=== PATIENT | male | born 1945 | race Caucasian/White ===

== ENCOUNTER 2018-07-09 17:35 | Observation (INO) | payer OTHER ==
[~2018-07-09] VITALS: Ht 182.9 cm; Wt 70.5 kg
[~2018-07-09 17:35] MED LIST: ALBU.083IS IH; ALBU90OI INH; ALBU90OI61 INH; AMLO5 PO; AMOX500 PO; AZIT250 PO; Augmentin 875-1 EACH PO; CARI350; EXFORGE PO; FLUSAL115; FLUSAL2505 IH; GABA600 PO; GUAI600T33 PO; HYDACE10B; HYDACE10B PO; HYDACE5 PO; HYDGUAL120 PO; IPRAIS NEB; K-Dur10 MEQ PO; LEVFLO500 PO; LISI5 PO; Lasix20 MG PO; META800 PO; METH10 PO; METPRE4DP PO; MONT10T PO; MORP15ER PO; NAPR500; NAPR500 PO; OXYACE7.5T PO; OXYC20ER; PRED10 PO; PRED20 PO; Prednisone20 MG PO; RXHYDACE PO; SERT25 PO; WATER PILL; Zithromax250 MG PO
[2018-07-09] MEDS ORDERED: MORP15ER PO (17:48)
[2018-07-09] MEDS ORDERED: LOSA25 PO (17:48)
[2018-07-09] MEDS ORDERED: GABA600 PO (17:49)
[2018-07-09 18:07] LABS: BASOPHILS ABSOLUTE AUTO 0.06 K/mm3 (0.00-0.23); BASOPHILS PERCENT AUTO 1 % (0-2); EOSINOPHILS ABSOLUTE AUTO 0.35 K/mm3 (0.00-0.68); EOSINOPHILS PERCENT AUTO 3 % (0-6); Hematocrit 43.9 % (37.0-53.0); Hemoglobin 14.5 g/dL (13.5-17.5); IMMATURE GRAN ABSOLUTE AUTO 0.03 K/mm3 (0.00-0.10); IMMATURE GRAN PERCENT AUTO 0 % (0-1); LYMPHOCYTES PERCENT AUTO 31 % (21-46); MONOCYTES ABSOLUTE AUTO 0.72 K/mm3 (0.16-1.47); MONOCYTES PERCENT AUTO 7 % (4-13); Mean Corpuscular HGB 31.5 pg (26.0-34.0); Mean Corpuscular Volume 95 fL (80-100); Mean Platelet Volume 10.3 fL (9.1-12.4); NEUTROPHILS ABSOLUTE AUTO 6.34 K/mm3 (1.96-9.15); NEUTROPHILS PERCENT AUTO 59 % (41-73); Platelet Count 235 K/mm3 (150-400); RDW Coefficient Variation 12.5 % (11.7-14.2); RDW Standard Deviation 43.6 fL (35.1-46.3)
[2018-07-09 18:38] LABS: Alanine Aminotransfer (ALT/SGP 14 U/L (12-78); Albumin, Blood 3.5 g/dL (3.4-5.0); Alk Phos 95 U/L (50-136); Anion Gap 6 mmol/L (6-16); Aspartate Aminotrans (AST/SGOT 11 U/L (12-37); Bilirubin, Total 0.4 mg/dL (0.1-1.0); Blood Urea Nitrogen 11 mg/dL (8-24); Bun/Creatinine Ratio 14.2 (12.0-20.0); CO2, Blood 25 mmol/L (21-32); Calcium, Blood 8.6 mg/dL (8.5-10.1); Chloride, Blood 107 mmol/L (98-108); Creatinine, Blood 0.77 mg/dL (0.60-1.20); Globulin, Blood 3.5 g/dL (2.2-4.0); Glomerular Filtration Rate >60 (60-); Glucose, Blood 83 mg/dL (70-99); Potassium, Blood 3.6 mmol/L (3.5-5.5); Sodium, Blood 138 mmol/L (136-145); Troponin I <0.015 ng/mL (0.000-0.040)
--- NOTE | 2018-07-09 20:30 | NUR ---
RECEIVED HAND OFF FROM CHRISTOFER YARBROUGH IN ER USING SBAR. TRANSPORTED TRO ROOM VIA STRETCHER. TRANSFERED TO BED WITH STANDBY STAFF ASSISTANCE, TOLERATED WELL. AAO X3, STANLEY, FOLLOWS ALL COMMANDS. ORIENTED TO ROOM, CALL SYSTEM, AND POC, VOICES UNDERSTANDING. LYING IN HIGH FOWLERS WITH EYES OPEN. DINNER TIME SNACKS PROVIDED, STATES THAT HE HAS NOT EATEN ALL DAY DUE TO THE CHEST PAIN THAT BROUGHT HIM IN TONIGHT. CONSUMED 2 HALF PIECES OF ROAST BEEF SADWICHS AND 2 PIECES OF CHEESE, WATER PROVIDED. TELEMETRY PLACED ON PT, SHOWS NSR WITH PAC'S AT 64BPM. RESPIRATIONS EVEN AND UNLABORED ON ROOM AIR. LUNG SOUNDS CLEAR BILATERALLY. ABDOMEN SOFT AND NONDISTENDED. BOWEL SOUNDS PRESENT IN ALL QUADS. CONTINENT OF BOWEL AND BLADDER, USES URINAL AT BEDSIDE. LEFT FA 20G SL PIV IS PATENT, FLUSHING WITH EASE. DENEIS FURTHER NEEDS AT THIS TIME. SAFETY MEASURES IN PLACE. WILL CONTINUE TO MONITOR.
--- NOTE | 2018-07-10 06:27 | NUR ---
LYING IN SUPINE POSITION WITH EYES CLOSED. RESPIRATIONS EVEN AND UNLABORED. NO CHANGES SINCE ADMISSION. DENIES FURTHER NEED AT THIS TIME. SAFETY MEASURES IN PLACE. WILL CONTINUE TO MONITOR.
--- NOTE | 2018-07-10 07:21 | NUR ---
recvd report from previous shift RN Kassandra, pt sleeping in room, bed in lowest position, bed rails up x 2, call light in reach
--- NOTE | 2018-07-10 12:15 | NUR ---
pt appears to be sleeping.
--- NOTE | 2018-07-10 15:56 | NUR ---
pt transferred to the heart center via wheelchair
--- NOTE | 2018-07-10 18:13 | NUR ---
shift summary: pt remained a/0 x 4, pleasant/cooperative, tolerated PO intake with no n/v. pt reports pain in back/legs controlled per mar. pt completed cardiac stress test this shift, findings indicate cardiac consult per hospitalist. consult line will be called. vss, no acute changes. pt sleeping x 3 nurse roundings following stress test.
[2018-07-11 04:50] LABS: BASOPHILS ABSOLUTE AUTO 0.05 K/mm3 (0.00-0.23); BASOPHILS PERCENT AUTO 1 % (0-2); EOSINOPHILS ABSOLUTE AUTO 0.47 K/mm3 (0.00-0.68); EOSINOPHILS PERCENT AUTO 5 % (0-6); Hematocrit 43.3 % (37.0-53.0); Hemoglobin 14.3 g/dL (13.5-17.5); IMMATURE GRAN ABSOLUTE AUTO 0.02 K/mm3 (0.00-0.10); IMMATURE GRAN PERCENT AUTO 0 % (0-1); LYMPHOCYTES ABSOLUTE AUTO 3.06 K/mm3 (0.84-5.20); LYMPHOCYTES PERCENT AUTO 34 % (21-46); MONOCYTES ABSOLUTE AUTO 0.75 K/mm3 (0.16-1.47); MONOCYTES PERCENT AUTO 8 % (4-13); Mean Corpuscular HGB 32.1 pg (26.0-34.0); Mean Corpuscular Volume 97 fL (80-100); Mean Platelet Volume 9.7 fL (9.1-12.4); NEUTROPHILS ABSOLUTE AUTO 4.69 K/mm3 (1.96-9.15); NEUTROPHILS PERCENT AUTO 52 % (41-73); Platelet Count 217 K/mm3 (150-400); RDW Coefficient Variation 12.5 % (11.7-14.2); RDW Standard Deviation 45.1 fL (35.1-46.3); Red Blood Cell Count 4.45 M/mm3 (4.30-5.90); White Blood Cell Count 9.04 K/mm3 (4.00-11.30)
[2018-07-11 05:03] LABS: International Normalized Ratio 0.99; Prothrombin Time Results 10.2 Sec (9.7-11.5)
[2018-07-11 05:14] LABS: Anion Gap 5 mmol/L (6-16); Blood Urea Nitrogen 19 mg/dL (8-24); Bun/Creatinine Ratio 26.6 (12.0-20.0); CHOL/HDL RATIO 2.7; CO2, Blood 26 mmol/L (21-32); Calcium, Blood 8.3 mg/dL (8.5-10.1); Chloride, Blood 109 mmol/L (98-108); Cholesterol 152 mg/dL (50-200); Creatinine, Blood 0.71 mg/dL (0.60-1.20); Glomerular Filtration Rate >60 (60-); Glucose, Blood 90 mg/dL (70-99); HDL Cholesterol 56 mg/dL (>39); LDL/HDL RATIO 1.5; Low Density Lipoprotein Chol 83 mg/dL (0-110); Potassium, Blood 3.9 mmol/L (3.5-5.5); Sodium, Blood 140 mmol/L (136-145); Triglycerides 65 mg/dL (30-160); Very Low Density Lipoprot Chol 13 mg/dL (6-32)
--- NOTE | 2018-07-11 10:30 | NUR ---
PT A&OX4, VSS, TELE S @ 60 OCC PVCS, INDEPENDENT IN ROOM, VOIDING WELL, LEFT FLOOR FOR ANGIOGRAM. REPORT CALLED TO LINNEA @ ICU.
--- NOTE | 2018-07-11 13:09 | NUR ---
Recieve patient from Hazmat Cdl Driver. Patient is alert and oriented. Splint on right wrist. Vital signs stable. Patient denies chest pain or pressure. Pulse ox on right finger. See flowsheet for details. present in room. Educated patient regarding keeping right wrist stable.
--- NOTE | 2018-07-11 15:13 | NUR ---
AGREE WITH EARLIER STUDENT NOTE FOR PT. PT RT SITE REMAINS STABLE. R FINGER SATS STABLE. PT CONT. TO DENIE PAIN OR DISTRESS, SETTING UP EATING. WILL BEGIN RT BAND DEFLATION [place].
--- NOTE | 2018-07-11 15:39 | NUR ---
TR BAND DEFLATED AND SITE IS STABLE FOR NOW. PT INSTRUCTED TO VISUALLY ASSIST WITH FOLLOW UP AND ARM BOARD REPLACED. WILL FOLLOW. PT HR CONT TO BE BELOW 60 AND TOPROL HELD BEFORE.
--- NOTE | 2018-07-11 16:49 | NUR ---
R TR BAND FULLY DEFLATED EARLIER AND NOW REMOVED WITH DSG PLACED. WHEN BAND REMOVED, SMALL THIN AREA ABOUT 1/2 DOLLAR SIZE NOTED THAT DID NOT FEEL LIKE HEMATOMA. ACTUAL SITE IS CLEAR AND INTACT W/O OOZING AT THIS AT TIME OF DSG CHANGE COMPLETION. PT REMAINS STABLE AND W/O ANY SIGNS OF DISTRESS.
--- NOTE | 2018-07-11 17:40 | NUR ---
PT CONT TO REST WELL W/O PAIN OR DISTRESS. R TR SITE INTACT WITH NEW DSG AND NO FURTHER BLEEDING AT SITE CURRENTLY WITH ARM BOARD ON. PT HAS BEEN VOIDING PER URINAL. IVF REMAINS AT 100ML FOR REMAINDER OF 500 BAG PER ORDER.
--- NOTE | 2018-07-11 20:00 | NUR ---
ASSUMED CARE OF PT AT 1900. REPORT RECEIVED AT BEDSIDE. PT PRESENTS IN BED. ALERT AND ORIENTED. PLEASANT AND COOPERATIVE WITH CARE AND ASSESSMENT. RADIAL ACCESS SITE WITH MINIMAL HEMATOMA NEAR ACCESS SITE. NO CHANGE PER OFFGOING RN. SHADOW DRAINAGE FROM OOZE ON CHG DRESSING. NO CHANGE NOTED WELL. WILL CONTINUE TO MONIOR. WILL REVIEW CHART AND PLAN OF CARE FOR THIS PT.
--- NOTE | 2018-07-11 20:00 | NUR ---
ASSUMED CARE OF PT. REPORT RECEIVED AT BEDSIDE. FISTULA PROCEDURAL REPAIR SITE EVALUATED AND ASSESSED WITH OFFGOING RN. SOME SWELLING AROUND FISTUAL SITE. GOOD THRILL NOTED AND GOOD DISTAL CMS CHECKS. NO INCREASE IN OOZING PER OFFGOING RN. WILL CONTINUE TO MONITOR SITE. WILL REVIEW CHART AND PLAN OF CARE FOR THIS PT.
[2018-07-11] MEDS ORDERED: BRIO INH (20:10)
[2018-07-11] MEDS ORDERED: INCRUSE ELLI62.5 MCG INH (20:11)
[2018-07-11] MEDS ORDERED: Aspirin EC81 MG PO (20:14)
[2018-07-11] MEDS ORDERED: CHOL10002 PO (20:14)
--- NOTE | 2018-07-12 01:29 | NUR ---
PT CONTINUES TO REST. VOICES NO COMPLAINTS OF CHEST PAIN OR PRESSURE. RADIAL ACCESS SITE REMAINS UNCHANGED. WILL CONTINUE TO MONITOR PT.
[2018-07-12 05:16] LABS: BASOPHILS ABSOLUTE AUTO 0.05 K/mm3 (0.00-0.23); BASOPHILS PERCENT AUTO 1 % (0-2); EOSINOPHILS ABSOLUTE AUTO 0.38 K/mm3 (0.00-0.68); EOSINOPHILS PERCENT AUTO 5 % (0-6); Hematocrit 40.2 % (37.0-53.0); Hemoglobin 13.3 g/dL (13.5-17.5); IMMATURE GRAN ABSOLUTE AUTO 0.02 K/mm3 (0.00-0.10); IMMATURE GRAN PERCENT AUTO 0 % (0-1); LYMPHOCYTES ABSOLUTE AUTO 3.16 K/mm3 (0.84-5.20); LYMPHOCYTES PERCENT AUTO 38 % (21-46); MONOCYTES ABSOLUTE AUTO 0.72 K/mm3 (0.16-1.47); MONOCYTES PERCENT AUTO 9 % (4-13); Mean Corpuscular HGB 32.4 pg (26.0-34.0); Mean Corpuscular HGB Conc 33.1 g/dL (31.5-36.5); Mean Corpuscular Volume 98 fL (80-100); Mean Platelet Volume 10.7 fL (9.1-12.4); NEUTROPHILS ABSOLUTE AUTO 4.04 K/mm3 (1.96-9.15); NEUTROPHILS PERCENT AUTO 48 % (41-73); Platelet Count 194 K/mm3 (150-400); RDW Coefficient Variation 12.5 % (11.7-14.2); RDW Standard Deviation 45.4 fL (35.1-46.3); White Blood Cell Count 8.37 K/mm3 (4.00-11.30)
[2018-07-12 06:06] LABS: Anion Gap 4 mmol/L (6-16); Blood Urea Nitrogen 21 mg/dL (8-24); Bun/Creatinine Ratio 29.7 (12.0-20.0); CO2, Blood 27 mmol/L (21-32); Calcium, Blood 7.9 mg/dL (8.5-10.1); Chloride, Blood 110 mmol/L (98-108); Creatinine, Blood 0.71 mg/dL (0.60-1.20); Glomerular Filtration Rate >60 (60-); Glucose, Blood 83 mg/dL (70-99); Potassium, Blood 3.7 mmol/L (3.5-5.5); Sodium, Blood 141 mmol/L (136-145)
--- NOTE | 2018-07-12 07:23 | NUR ---
DR DOW COMES IN TO SEE PT THIS AM. SHE INFORMS PT THAT HE WILL BE DISCHARGED TODAY AND IS TO FOLLOW UP WITH HER IN TWO WEEKS. RIGHT RADIAL PUNCTURE SITE REMAINS UNCHANGED. REPORT GIVEN TO CHRISTOFER MUÑOZ
--- NOTE | 2018-07-12 08:21 | NUR ---
0730: CARE ASSUMED, PT RESTING IN BED WATCHING TV, DENIES SOB, CHEST PAIN/ORESSURE, OR DISCOMFORT AT THIS TIME. VSS, SPO2 95% ON RA, HR 50'S - 60'S SINUS. LS COARSE IN LLL, OTHER LOBES CLEAR, PT JUST FINISHED NEB TREATMENT. PT ALERT AND ORIENTED, DENIES NEEDS OR C/O AT THIS TIME. DR. DOW BACK AT BEDSIDE TO DISCUSS MEDICATIONS WITH PT. 0800: PT SITTING UP IN BED EATING BREAKFAST, TOLERATING WELL. DR. RIBEIRO AT BEDSIDE.
[2018-07-12] MEDS ORDERED: BREO ELLIPTA 21 EACH INH (09:19)
[2018-07-12] MEDS ORDERED: AMLO5 PO (09:23)
[2018-07-12] MEDS ORDERED: ATOR40TA PO (09:24)
[2018-07-12] MEDS ORDERED: Isosorbide Mono30 MG PO (09:26)
--- NOTE | 2018-07-12 10:17 | NUR ---
1000: PT GOT UP TO BR, HAD A BM, THEN WENT BACK TO BED. SOB WITH EXERTION REMAINS, PT RECOVERS QUICKLY WITH REST, SPO2 MAINTAINS MID 90'S ON RA. 1015: IV DC'D WITH TIP INTACT, PRESSURE DRESSING APPLIED. DISCHARGE INSTRUCTIONS GIVEN TO PT, PT VERBALIZES UNDERSTANDING. RX'S SENT TO PHARMACY. PT AWAITING 'S ARRIVAL FOR RIDE HOME, DENIES NEEDS OR C/O AT THIS TIME. SPO2 96% ON RA, PT DENIES SOB.
--- NOTE | 2018-07-12 11:10 | NUR ---
1045: PT'S ARRIVED TO CUSTOMER PROJECT MANAGER PT, MONITORING DC'D AT THIS TIME, PT DENIES SOB. SPO2 96% ON RA. PT DC TO HOME AT THIS TIME WITH WITH DC INSTRUCTIONS, VERBALIZES UNDERSTANDING. PT ASSISTED TO CAR VIA WC BY STAFF MEMBER.
== END 2018-07-12 10:45 | disposition home or self-care (01) ==
LOC: ER 17:35 → SURS 17:36 → ICUE 07-11 12:30
PROVIDERS: Emergency Medicine; Internal Medicine Cardiovascular Disease; ADMIT Internal Medicine
DX: I20.0 Unstable angina (principal); R94.31 Abnormal electrocardiogram [ECG] [EKG]; R94.39 Abnormal result of other cardiovascular function study; J44.9 Chronic obstructive pulmonary disease, unspecified; I10 Essential (primary) hypertension; F11.90 Opioid use, unspecified, uncomplicated; E78.5 Hyperlipidemia, unspecified; M54.9 Dorsalgia, unspecified; G89.29 Other chronic pain; Z88.2 Allergy status to sulfonamides; Z88.8 Allergy status to other drugs, medicaments and biological substances; Z79.899 Other long term (current) drug therapy
CPT/HCPCS: 36415; 71046; 78452; 80048; 80053; 80061; 83690; 84484; 85025; 85610; 93005; 93010; 93017; 93454; 94640; 96360; 96361; 96372; 99152; 99153; 99285-25; A9500; C1769; C1894; G0378; J0706; J1644; J1650; J2250; J2785; J3010; J7030; J7040; Q9967

== ENCOUNTER 2019-08-28 19:13 | Emergency (ER) | payer OTHER ==
[~2019-08-28] VITALS: Ht 182.9 cm; Wt 67.1 kg
[~2019-08-28 19:13] MED LIST changes: +ATOR40TA PO; +Aspirin EC81 MG PO; +BREO ELLIPTA 21 EACH INH; +BRIO INH; +CHOL10002 PO; +INCRUSE ELLI62.5 MCG INH; +Isosorbide Mono30 MG PO; +LOSA25 PO
[2019-08-28 19:59] LABS: BASOPHILS ABSOLUTE AUTO 0.06 K/mm3 (0.00-0.23); BASOPHILS PERCENT AUTO 1 % (0-2); EOSINOPHILS ABSOLUTE AUTO 0.24 K/mm3 (0.00-0.68); EOSINOPHILS PERCENT AUTO 3 % (0-6); Hematocrit 45.4 % (37.0-53.0); Hemoglobin 14.9 g/dL (13.5-17.5); IMMATURE GRAN ABSOLUTE AUTO 0.02 K/mm3 (0.00-0.10); IMMATURE GRAN PERCENT AUTO 0 % (0-1); LYMPHOCYTES ABSOLUTE AUTO 3.18 K/mm3 (0.84-5.20); LYMPHOCYTES PERCENT AUTO 37 % (21-46); MONOCYTES ABSOLUTE AUTO 0.68 K/mm3 (0.16-1.47); MONOCYTES PERCENT AUTO 8 % (4-13); Mean Corpuscular HGB 32.4 pg (26.0-34.0); Mean Corpuscular HGB Conc 32.8 g/dL (31.5-36.5); Mean Corpuscular Volume 99 fL (80-100); Mean Platelet Volume 10.1 fL (9.1-12.4); NEUTROPHILS ABSOLUTE AUTO 4.52 K/mm3 (1.96-9.15); NEUTROPHILS PERCENT AUTO 52 % (41-73); Platelet Count 248 K/mm3 (150-400); RDW Coefficient Variation 12.5 % (11.7-14.2); RDW Standard Deviation 45.5 fL (35.1-46.3)
[2019-08-28 20:23] LABS: Alanine Aminotransfer (ALT/SGP 20 U/L (12-78); Albumin, Blood 3.3 g/dL (3.4-5.0); Albumin/Globulin Ratio 0.9 (0.8-1.8); Alk Phos 106 U/L (50-136); Anion Gap 2 mmol/L (6-16); Aspartate Aminotrans (AST/SGOT 15 U/L (12-37); Bilirubin, Total 0.3 mg/dL (0.1-1.0); Blood Urea Nitrogen 17 mg/dL (8-24); Bun/Creatinine Ratio 21.4 (12.0-20.0); CO2, Blood 32 mmol/L (21-32); Calcium, Blood 8.8 mg/dL (8.5-10.1); Chloride, Blood 107 mmol/L (98-108); Globulin, Blood 3.7 g/dL (2.2-4.0); Glomerular Filtration Rate >60 (60-); Glucose, Blood 82 mg/dL (70-99); Potassium, Blood 3.9 mmol/L (3.5-5.5); Sodium, Blood 141 mmol/L (136-145); Troponin I <0.015 ng/mL (0.000-0.040)
[2019-08-28] MEDS ORDERED: ALBU90OI INH (23:32)
[2019-08-29] MEDS ORDERED: Prednisone20 MG PO (02:59)
[2019-08-29] MEDS ORDERED: Zithromax250 MG PO (02:59)
== END 2019-08-29 03:11 | disposition home or self-care (01) ==
LOC: ER 19:13
PROVIDERS: Physician Assistant
DX: R06.00 Dyspnea, unspecified (principal); I11.0 Hypertensive heart disease with heart failure; I50.9 Heart failure, unspecified; F17.200 Nicotine dependence, unspecified, uncomplicated; Z88.2 Allergy status to sulfonamides; Z79.899 Other long term (current) drug therapy
CPT/HCPCS: 36415; 71046; 80053; 83880; 84484; 85025; 93005; 93010; 94640; 99284-25; J7512

== ENCOUNTER 2020-09-17 21:04 | Emergency (ER) | payer OTHER ==
[~2020-09-17] VITALS: Ht 182.9 cm; Wt 72.6 kg
[2020-10-13] MEDS ORDERED: Prednisone50 MG PO (22:16)
== END 2020-09-17 22:38 | disposition home or self-care (01) ==
LOC: ER 21:04
DX: R04.0 Epistaxis (principal); Z88.8 Allergy status to other drugs, medicaments and biological substances; Z88.2 Allergy status to sulfonamides; Z88.6 Allergy status to analgesic agent; Z79.82 Long term (current) use of aspirin; Z79.899 Other long term (current) drug therapy
CPT/HCPCS: 99283; A9270

== ENCOUNTER 2020-10-13 16:06 | Emergency (ER) | payer OTHER ==
[~2020-10-13] VITALS: Ht 182.9 cm; Wt 71.7 kg
== END 2020-10-13 23:25 | disposition home or self-care (01) ==
LOC: ER 16:06
DX: J44.1 Chronic obstructive pulmonary disease with (acute) exacerbation (principal); Z79.899 Other long term (current) drug therapy; Z79.82 Long term (current) use of aspirin
CPT/HCPCS: 36415; 36600; 71046; 80053; 82803; 83690; 83735; 83880; 84484; 85025; 93005; 93010; 94644; 99285-25; J7512

== ENCOUNTER 2020-11-30 14:51 | Emergency (ER) | payer OTHER ==
[~2020-11-30] VITALS: Ht 182.9 cm; Wt 70.8 kg
[~2020-11-30 14:51] MED LIST changes: +Prednisone50 MG PO
[2020-11-30 15:13] LABS: BASOPHILS ABSOLUTE AUTO 0.04 K/mm3 (0.00-0.23); BASOPHILS PERCENT AUTO 0 % (0-2); EOSINOPHILS ABSOLUTE AUTO 0.23 K/mm3 (0.00-0.68); EOSINOPHILS PERCENT AUTO 2 % (0-6); Hematocrit 47.9 % (37.0-53.0); Hemoglobin 15.2 g/dL (13.5-17.5); IMMATURE GRAN ABSOLUTE AUTO 0.03 K/mm3 (0.00-0.10); IMMATURE GRAN PERCENT AUTO 0 % (0-1); LYMPHOCYTES PERCENT AUTO 18 % (21-46); MONOCYTES ABSOLUTE AUTO 0.76 K/mm3 (0.16-1.47); MONOCYTES PERCENT AUTO 7 % (4-13); Mean Corpuscular HGB 32.4 pg (26.0-34.0); Mean Corpuscular HGB Conc 31.7 g/dL (31.5-36.5); Mean Corpuscular Volume 102 fL (80-100); Mean Platelet Volume 10.6 fL (9.1-12.4); NEUTROPHILS ABSOLUTE AUTO 7.38 K/mm3 (1.96-9.15); NEUTROPHILS PERCENT AUTO 71 % (41-73); Platelet Count 223 K/mm3 (150-400); RDW Coefficient Variation 13.8 % (11.7-14.2); RDW Standard Deviation 52.3 fL (35.1-46.3); Red Blood Cell Count 4.69 M/mm3 (4.30-5.90); White Blood Cell Count 10.34 K/mm3 (4.00-11.30)
[2020-11-30 15:44] LABS: Alanine Aminotransfer (ALT/SGP 20 U/L (12-78); Albumin, Blood 3.2 g/dL (3.4-5.0); Albumin/Globulin Ratio 0.7 (0.8-1.8); Alk Phos 96 U/L (50-136); Anion Gap 3 mmol/L (6-16); Aspartate Aminotrans (AST/SGOT 22 U/L (12-37); Bilirubin, Total 0.5 mg/dL (0.1-1.0); Blood Urea Nitrogen 20 mg/dL (8-24); Bun/Creatinine Ratio 18.5 (12.0-20.0); CO2, Blood 40 mmol/L (21-32); Calcium, Blood 9.3 mg/dL (8.5-10.1); Chloride, Blood 98 mmol/L (98-108); Creatinine, Blood 1.08 mg/dL (0.60-1.20); Globulin, Blood 4.3 g/dL (2.2-4.0); Glomerular Filtration Rate >60 (60-); Glucose, Blood 102 mg/dL (70-99); Potassium, Blood 2.8 mmol/L (3.5-5.5); Sodium, Blood 141 mmol/L (136-145); Total Protein, Blood 7.5 g/dL (6.4-8.2); Troponin I 0.017 ng/mL (0.000-0.040)
== END 2020-11-30 17:06 | disposition home or self-care (01) ==
LOC: ER 14:51
PROVIDERS: Physician Assistant
DX: J44.9 Chronic obstructive pulmonary disease, unspecified (principal); R09.02 Hypoxemia; I50.9 Heart failure, unspecified; Z79.82 Long term (current) use of aspirin; Z79.899 Other long term (current) drug therapy; Z88.2 Allergy status to sulfonamides; Z88.8 Allergy status to other drugs, medicaments and biological substances; Z88.6 Allergy status to analgesic agent; Z87.891 Personal history of nicotine dependence
CPT/HCPCS: 36415; 71046; 80053; 84484; 85025; 93005; 93010; 99285-25

== ENCOUNTER 2023-08-07 16:56 | Inpatient (IN) | payer OTHER ==
[~2023-08-07] VITALS: Ht 175.3 cm; Wt 62.2 kg
[2023-08-07] VITALS (12 sets, daily range): BP systolic 104–176; BP diastolic 66–93
[~2023-08-07 16:56] MED LIST changes: +NEURONTIN600 MG PO
[2023-08-07] MEDS ORDERED: MethylPREDNISolone Sod Succ 125 MG Vial IV ONE (17:05)
[2023-08-07 17:09] LABS: Base Excess Venous 29.6 mmol/L; Bicarbonate Venous 49.7 mmol/L (24.0-30.0); PO2 Venous 151 mmHg (38-42); pH Blood Venous 7.33 (7.34-7.37)
[2023-08-07 17:10] LABS: BASOPHILS ABSOLUTE AUTO 0.02 K/mm3 (0.00-0.23); BASOPHILS PERCENT AUTO 0 % (0-2); EOSINOPHILS ABSOLUTE AUTO 0.01 K/mm3 (0.00-0.68); EOSINOPHILS PERCENT AUTO 0 % (0-6); Hematocrit 37.9 % (37.0-53.0); Hemoglobin 11.3 g/dL (13.5-17.5); IMMATURE GRAN ABSOLUTE AUTO 0.07 K/mm3 (0.00-0.10); IMMATURE GRAN PERCENT AUTO 1 % (0-1); LYMPHOCYTES ABSOLUTE AUTO 1.17 K/mm3 (0.84-5.20); LYMPHOCYTES PERCENT AUTO 8 % (21-46); MONOCYTES ABSOLUTE AUTO 0.61 K/mm3 (0.16-1.47); MONOCYTES PERCENT AUTO 4 % (4-13); Mean Corpuscular HGB 31.8 pg (26.0-34.0); Mean Corpuscular HGB Conc 29.8 g/dL (31.5-36.5); Mean Corpuscular Volume 107 fL (80-100); Mean Platelet Volume 10.8 fL (9.1-12.4); NEUTROPHILS ABSOLUTE AUTO 12.48 K/mm3 (1.96-9.15); NEUTROPHILS PERCENT AUTO 87 % (41-73); PCO2 Venous > 104 mmHg (38-42); Platelet Count 307 K/mm3 (150-400); RDW Coefficient Variation 12.3 % (11.7-14.2); RDW Standard Deviation 48.4 fL (35.1-46.3); Red Blood Cell Count 3.55 M/mm3 (4.30-5.90); White Blood Cell Count 14.36 K/mm3 (4.00-11.30)
[2023-08-07] MEDS ORDERED: Azithromycin 500 MG in NS 250 ML IV ONE (17:25)
[2023-08-07] MEDS ORDERED: Magnesium Sulf 2 GM/Water 50ML 50 ML IV ONE (17:25)
[2023-08-07] MEDS ORDERED: CefTRIAXone Sodium 1,000 MG in NS 50 ML IV ONE (17:25)
[2023-08-07] MEDS ORDERED: Albuterol 2.5 MG/3 ML VIAL INH ONE ×2 (17:35→18:05)
[2023-08-07] MEDS ORDERED: Ipratropium/Albuterol SulF 2.5-0.5MG/3 ML Amp INH ONE (17:35)
[2023-08-07 17:40] LABS: Alanine Aminotransfer (ALT/SGP 50 U/L (12-78); Albumin, Blood 3.3 g/dL (3.4-5.0); Albumin/Globulin Ratio 0.9 (0.8-1.8); Alk Phos 68 U/L (50-136); Anion Gap Unable to Calculate mmol/L (6-16); Aspartate Aminotrans (AST/SGOT 31 U/L (12-37); Bilirubin, Total 0.5 mg/dL (0.1-1.0); Blood Urea Nitrogen 47 mg/dL (8-24); Bun/Creatinine Ratio 94.8 (12.0-20.0); CO2, Blood >45 mmol/L (21-32); Calcium, Blood 9.4 mg/dL (8.5-10.1); Chloride, Blood 91 mmol/L (98-108); Globulin, Blood 3.8 g/dL (2.2-4.0); Glomerular Filtration Rate 105 (60-); Glucose, Blood 255 mg/dL (70-99); Sodium, Blood 140 mmol/L (136-145); Total Protein, Blood 7.1 g/dL (6.4-8.2)
[2023-08-07] MEDS ORDERED: Diltiazem HCl 5 MG / ML 5ML Vial IV ONE (17:40)
[2023-08-07 17:53] LABS: Influenza A, PCR NEGATIVE (NEGATIVE); Influenza B, PCR NEGATIVE (NEGATIVE); Resp Syncytial Virus, PCR NEGATIVE (NEGATIVE); SARS-Cov-2 (COVID-19) PCR, MMC NEGATIVE (NEGATIVE)
[2023-08-07 18:15] LABS: Base Excess Venous 27.5 mmol/L; Bicarbonate Venous 46.9 mmol/L (24.0-30.0); PCO2 Venous 104 mmHg (38-42); pH Blood Venous 7.32 (7.34-7.37)
[2023-08-07] MEDS ORDERED: dilTIAZem HCL 125 MG in Dextrose 5% 100 ML IV SCH (18:25)
[2023-08-07] MEDS ORDERED: Ipratropium/Albuterol SulF 2.5-0.5MG/3 ML Amp INH SCH (19:00)
[2023-08-07] MEDS ORDERED: Acetaminophen 325 MG TABLET PO PRN (19:00)
[2023-08-07] MEDS ORDERED: Ondansetron HCl 2 MG / ML 2ML Vial IV PRN (19:00)
[2023-08-07] MEDS ORDERED: Albuterol 2.5 MG/3 ML VIAL INH PRN (19:00)
[2023-08-07] MEDS ORDERED: FLU VACC QS2023-24(6MOS UP)/PF 60 MCG/0.5 ML SYRINGE IM SCH (19:05)
[2023-08-07] MEDS ORDERED: NS 250 ML IV PRN (20:30)
--- NOTE | 2023-08-07 20:30 | NUR ---
PT ARRIVED FROM ER VIA STRETCHER TO ICU ROOM 09. PT IS CURRENTLY ON CONTINUOUS BIPAP 12/5 35%. BILATERAL LUNG SANTOS DIMINISHED W/CRACKLES. LIMITED AIR MOVEMENT AUSCULTATED, VBG ORDERED FOR 2199. OXYGEN SAT 90% OR GREATER AT THE CURRENT TIME. PT ABLE TO SPEAK IN ONE TO TWO WORD SENTENCES ONLY. ORIENTED TO NAME AND PLACE, NOT DATE. PT IS VERY DISHEVELED AND DIRTY, CLOTHES NOTED TO BE SOILDED WITH URINE. PT WAS CLEANED AND PLACED IN A HOSPITAL GOWN. PT IS VERY CACHECTIC W/LOWER EXTREMITY EDEMA NOTED. FEET ARE COLD AND SLIGHTLY MOTTLED BUT PULSES ARE PRESENT BILATERALLY AND CAN BE HEARD W/DOPPLER(PEDAL). PT IS QUITE LETHARGIC BUT DOES RESPONDS TO VERBAL STIMULI THEN QUICKLY GOES BACK TO SLEEP. HE IS ON A CARDIZEM GTT AT 5, RATE IS 90-100S FLUTTER, BP WNL. LOWER EXTREMITY SKIN IN VERY DRY AND FLAKY. I SPOKE TO PT ON THE PHONE WHO VERIFIES PT ALLERGIES AND STATES THAT HE IS TO BE A FULL CODE.
[2023-08-07 21:04] LABS: Bicarbonate Venous 49.4 mmol/L (24.0-30.0); PCO2 Venous 85.4 mmHg (38-42); pH Blood Venous 7.41 (7.34-7.37)
[2023-08-07] MEDS ORDERED: FURO20 PO (21:13)
[2023-08-07] MEDS ORDERED: POTCHL20ER PO (21:14)
[2023-08-07] MEDS ORDERED: BREZTRI AEROS10.7 GM IH (21:14)
[2023-08-07] MEDS ORDERED: FentaNYL Citrate 50 MCG/ML 2 ML Injection IV PRN (23:45)
[2023-08-08] VITALS (90 sets, daily range): BP systolic 97–168; BP diastolic 57–105
[2023-08-08] MEDS ORDERED: MethylPREDNISolone Sod Succ 125 MG Vial IV SCH
[2023-08-08 03:39] LABS: Hematocrit 37.3 % (37.0-53.0); Hemoglobin 10.9 g/dL (13.5-17.5); Mean Corpuscular HGB Conc 29.2 g/dL (31.5-36.5); Mean Corpuscular Volume 106 fL (80-100); Mean Platelet Volume 11.1 fL (9.1-12.4); Platelet Count 287 K/mm3 (150-400); RDW Coefficient Variation 12.4 % (11.7-14.2); RDW Standard Deviation 48.3 fL (35.1-46.3); Red Blood Cell Count 3.52 M/mm3 (4.30-5.90); White Blood Cell Count 12.58 K/mm3 (4.00-11.30)
[2023-08-08 04:08] LABS: Magnesium, Blood 2.6 mg/dL (1.6-2.4)
[2023-08-08 04:22] LABS: Bicarbonate Venous 49.8 mmol/L (24.0-30.0); PCO2 Venous 72.4 mmHg (38-42); pH Blood Venous 7.47 (7.34-7.37)
[2023-08-08 04:52] LABS: Anion Gap Unable to Calculate mmol/L (6-16); Blood Urea Nitrogen 41 mg/dL (8-24); Bun/Creatinine Ratio 82.8 (12.0-20.0); CO2, Blood >45 mmol/L (21-32); Calcium, Blood 9.4 mg/dL (8.5-10.1); Chloride, Blood 93 mmol/L (98-108); Glomerular Filtration Rate 105 (60-); Glucose, Blood 149 mg/dL (70-99); Potassium, Blood 4.2 mmol/L (3.5-5.5); Sodium, Blood 142 mmol/L (136-145)
--- NOTE | 2023-08-08 05:49 | NUR ---
SHIFT SUMMERY PT HAS REMAINED ON BIPAP SINCE ADMISSION TO ICU. HIS LAB VALUES ARE IMPROVING AND HE IS BECOMING MORE ALERT. HE WILL OPEN HIS EYES AND ANSWER SIMPLE QUESTIONS. STILL SOB W/ACTIVITY, CONVERSATION-OXYGEN SAT 100% W/NO EPISODES OF DESATURATION OVERNIGHT. CARDIZEM GTT CONTINUES PER MD ORDER, PT REMAINS IN AFLUTTER W/RATE 90-100S ON THE SHELLFISH MEAT SEPARATOR OPERATOR. BP WNL.
--- NOTE | 2023-08-08 07:35 | NUR ---
ASSUMED CARE I ASSUMED CARE OF THIS PATIENT FROM CHRISTOFER DE LEON AT 0700. PATIENT LYING IN BED ON BIPAP 12/ 30% FIO2. PATIENT YELLING "WATER" CLEARLY AND LOUDLY. RT TO BEDSIDE TO SWITCH TO NC. WATER SWAB PROVIDED TO PATIENT. CONDOM CATH IN PLACE WIH YELLOW URINE OUTPUT. CARDIZEM GTT INF @ 10MG/HR. NO FAMILY OR VISITORS AT BEDSIDE.
[2023-08-08] MEDS ORDERED: Enoxaparin 40 MG/0.4 ML SYR SC SCH (09:00)
[2023-08-08] MEDS ORDERED: Azithromycin 500 MG in NS 250 ML IV SCH (09:00)
[2023-08-08 09:29] LABS: Anti-Xa UFH, PHA Monitoring 0.24 IU/mL; International Normalized Ratio 1.04; Prothrombin Time Results 10.9 Sec (9.7-11.5)
[2023-08-08] MEDS ORDERED: Heparin Sodium,Porcine/0.5 NS 500 ML IV SCH (09:35)
[2023-08-08] MEDS ORDERED: XANAX0.25 MG PO (11:01)
[2023-08-08] MEDS ORDERED: METOPROLOL SUCC25 MG PO (11:06)
[2023-08-08] MEDS ORDERED: PRED5 PO (11:08)
[2023-08-08] MEDS ORDERED: Diltiazem HCl 180 MG Cap.CD PO SCH (15:00)
[2023-08-08] MEDS ORDERED: ALPRAZolam 0.25 MG Tab PO PRN (16:55)
--- NOTE | 2023-08-08 18:15 | NUR ---
SHIFT SUMMARY PATIENT O2 REQUIREMENTS WAX AND WANE. FROM 4LPM TO 9LPM VIA NC WHEN AWAKE, REQUIRES MORE WHEN EATING TO KEEP SATS GREATER THAN 88%. BIPAP WHEN ASLEEP. MONITOR SHOWS A FLUTTER, RATE 90'S-100'S. CARDIZEM GTT @ 15MG/HR AND PO CARDIZEM STARTED TODAY. HOME METOPROLOL RESTARTED WELL. PATIENT REMAINS A&O TO SELF ONLY AND DOES NOT BELIEVE THIS NURSE REGARDING CURRENT PLACE AND SITUATION. HEPARIN GTT STARTED TODAY FOR NEW ONSET AFLUTTER. HEPARIN CURRENTLY AT 18 UNITS/KG/HR. CONDOM CATH REMAINS IN PLACE. NO BM THIS SHIFT. PATIENTS DAUGHTER-TJ CAME TO VISIT AND UPDATED ON PATIENTS RECENT COGNITION AND LIVING SITUATION. PALLIATIVE CARE UPDATED AND COGNITIVE EVAL ORDERED PER HOSPITALIST. NO OTHER CHANGES THIS SHIFT.
--- NOTE | 2023-08-08 19:31 | NUR ---
CHEST PAIN PATIENT BEGAN COMPLAINING OF 6/10 CHEST PRESSURE/TIGHTNESS AND DYSPNEA. DESCRIBES IT "MY LUNGS ARE SQUEEZING MY CHEST". NO RADIATION OF PAIN. EKG ORDERED AND OBTAINED. SHOWS A FLUTTER WITH A BBB RATE 99 BPM. CALL MADE TO JORDAN WEEKS AND VERBAL ORDERS RECEIVED FOR PRN ALBUTEROL TREATMENT NOW AND WILL ASSESS PATIENT AT BEDSIDE.
[2023-08-08] MEDS ORDERED: Morphine Sulfate 4 MG/1 ML Injection IV ONE (19:45)
[2023-08-08] MEDS ORDERED: Furosemide 10 MG/ML 4ML Vial IV ONE (19:45)
--- NOTE | 2023-08-08 20:42 | NUR ---
Assessment Assumed Care Pt in aflutter with frequent PVCs. EKG obtained on prior shift d/t c/o chest pain. Hospitalist Andre Sepulveda BUILDING COORDINATOR in room to see patient. See new orders. Pt oriented to self and place, remains disoriented to time and reason for hospitalization. Pt continues to c/o chest pain, but is improved with medications. Pt currently on bipap from 7L NC, RT placed bipap after breathing treatment. Heparin and cardizem infusing.
[2023-08-08] MEDS ORDERED: Gabapentin 300 MG Cap PO SCH (21:00)
[2023-08-08] MEDS ORDERED: Nitroglycerin 1 INCH/GM PKT TOP ONE (21:00)
[2023-08-09] VITALS (51 sets, daily range): BP systolic 96–153; BP diastolic 58–100
[2023-08-09] MEDS ORDERED: Dose Adjust by Pharmacy XX STA ×3 (00:10→14:01)
[2023-08-09 04:06] LABS: Hematocrit 30.5 % (37.0-53.0); Hemoglobin 9.3 g/dL (13.5-17.5); Platelet Count 230 K/mm3 (150-400)
--- NOTE | 2023-08-09 06:17 | NUR ---
Shift Summary Pt used BiPAP overnight 06/05 rate of 14, with FiO2 titrated up to 40% from 30% to maintain O2 levels >90%. Currently on 7L HFNC. HR continues aflutter, 80s to 100s, cardizem on standby, heparin gtt increased to 20 Units/kg/hr. Pt received lasix, morphine, and nitrobid for chest pain at beginning of shift, no further chest pain reported. Pt visited around 2200.
[2023-08-09 08:19] LABS: BASOPHILS ABSOLUTE AUTO 0.01 K/mm3 (0.00-0.23); BASOPHILS PERCENT AUTO 0 % (0-2); EOSINOPHILS PERCENT AUTO 0 % (0-6); Hematocrit 33.4 % (37.0-53.0); Hemoglobin 10.2 g/dL (13.5-17.5); IMMATURE GRAN ABSOLUTE AUTO 0.08 K/mm3 (0.00-0.10); IMMATURE GRAN PERCENT AUTO 1 % (0-1); LYMPHOCYTES ABSOLUTE AUTO 0.37 K/mm3 (0.84-5.20); LYMPHOCYTES PERCENT AUTO 3 % (21-46); MONOCYTES ABSOLUTE AUTO 0.45 K/mm3 (0.16-1.47); MONOCYTES PERCENT AUTO 3 % (4-13); Mean Corpuscular HGB 31.7 pg (26.0-34.0); Mean Corpuscular HGB Conc 30.5 g/dL (31.5-36.5); Mean Corpuscular Volume 104 fL (80-100); Mean Platelet Volume 11.2 fL (9.1-12.4); NEUTROPHILS ABSOLUTE AUTO 13.22 K/mm3 (1.96-9.15); NEUTROPHILS PERCENT AUTO 94 % (41-73); Platelet Count 244 K/mm3 (150-400); RDW Coefficient Variation 12.7 % (11.7-14.2); RDW Standard Deviation 48.4 fL (35.1-46.3); Red Blood Cell Count 3.22 M/mm3 (4.30-5.90); White Blood Cell Count 14.13 K/mm3 (4.00-11.30)
[2023-08-09 08:19] LABS: Base Excess Venous 25.9 mmol/L; Bicarbonate Venous 46.9 mmol/L (24.0-30.0); PCO2 Venous 76.1 mmHg (38-42); pH Blood Venous 7.43 (7.34-7.37)
[2023-08-09 08:39] LABS: Blood Urea Nitrogen 52 mg/dL (8-24); Bun/Creatinine Ratio 80.2 (12.0-20.0); Calcium, Blood 8.7 mg/dL (8.5-10.1); Chloride, Blood 94 mmol/L (98-108); Creatinine, Blood 0.65 mg/dL (0.60-1.20); Glomerular Filtration Rate 97 (60-); Glucose, Blood 159 mg/dL (70-99); Potassium, Blood 4.1 mmol/L (3.5-5.5); Sodium, Blood 141 mmol/L (136-145)
[2023-08-09 08:40] LABS: Anion Gap Unable to Calculate mmol/L (6-16)
[2023-08-09 08:41] LABS: CO2, Blood >45 mmol/L (21-32)
[2023-08-09] MEDS ORDERED: Metoprolol Succinate 25 MG TABCR PO SCH (09:00)
--- NOTE | 2023-08-09 11:49 | NUR ---
Afternoon assessment: Pt was on 7L of O2 in this morning, after eatting breakfast pt became fatigue and had increased WOB stating low 90's. Placed on BIPAP to help relieve. Pt given a break off of BIPAP an hr later and placed back on 7L O2 high flow. OT visited with pt. Pt fatigued and has increased WOB with 7L O2 high flow, stats are at 98%. Placed pt back on BIPAP. Lung sounds are diminshed with accessory muscle use. Crackles in the lower lobes and expiratory wheezing present. Pt responding to verbal stimuli. After cardiac meds were given pt's heart rate has come down from 130's to 90's.
[2023-08-09] MEDS ORDERED: NS 500 ML IV SCH ×2 (14:40→15:00)
--- NOTE | 2023-08-09 17:16 | NUR ---
END OF SHIFT ASSESSMENT: Pt coopertive, no cognitive changes. Pt received and tolerated well bed bath today. No BM during todays shift. Pt is very fatigued and drowsy. Pt continues to alternate between BIPAP and 7L O2 with stats between 94-98%. Daughter Shreya visited and requested referral to care management team, walked pt over to director of casework. and son in law called and chatted with pt over room phone. Daughter Margo visited requesting patient information, per pt request no information to be given to olivia Aragon. Atrial flutter continues. BP remains stable, map in 80s-90s. HR is staying in the 90's to low 100's. First dose of xarelto given during evening administration, heparin is being discontinued. Pt has had great food intake during todays shift.
[2023-08-09] MEDS ORDERED: Rivaroxaban 10 MG Tab PO SCH (18:30)
--- NOTE | 2023-08-09 20:05 | NUR ---
ASSUME CARE PT ON BIPAP AT CHANGE OF SHIFT ST TO 12/01 50% RATE 15. PT MOVED TO 10L NC FOR ASSESSMENT AND ORAL CARE. CHG BATH GIVEN AT THIS TIME AND HAIR WASHED WITH SHOWER CAP, LINENS AND GOWN CHANGED. PT ORIENTED TO SELF, PLACE, AND YEAR AND MONTH. PT PIVs REMAIN IN PLACE. PT HAS ONLY NS RUNNING AT THIS TIME, SET TO END WITH FINISHING THIS NS BAG.
[2023-08-10] VITALS (26 sets, daily range): BP systolic 98–1421; BP diastolic 64–89
--- NOTE | 2023-08-10 01:10 | NUR ---
ADMISSION PT ARRIVED FROM ED AT 0110. FIRST UNIT OF BLOOD STARTED IN ED AND REMAINS RUNNING ON ARRIVAL TO UNIT. PT ARRIVED TO UNIT WITH [address] PT ORIENTED TO ROOM AND PLAN OF CARE FOR REMAINING SHIFT. PT A&OX4 ON ARRIVAL, SEEMS HARD OF HEARING. PT ABLE TO HELP TURN WHEN REPOSITIONING. PT BILATERAL LOWER EXTREMITIES ARE MARKEDLY SWOLLEN WITH NON-PITTING EDEMA AND DISCOLORATION WITH ROUGH TEXTURE. PT INITIALLY STATES HAVING SENSORY DIFFICULTIES WITH BLE, BUT PT LATER STATED THAT PT DID NOT HAVE ANY CHANGE IN SENSATION. RN REQUIRING TO REPEAT AND REPHRASE QUESTIONS AT TIME D/T [place] AND PT UNDERSTANDING. PT TO BE STARTED ON CPAP
[2023-08-10 04:23] LABS: BASOPHILS ABSOLUTE AUTO 0.01 K/mm3 (0.00-0.23); BASOPHILS PERCENT AUTO 0 % (0-2); EOSINOPHILS PERCENT AUTO 0 % (0-6); Hematocrit 32.2 % (37.0-53.0); Hemoglobin 9.4 g/dL (13.5-17.5); IMMATURE GRAN ABSOLUTE AUTO 0.08 K/mm3 (0.00-0.10); IMMATURE GRAN PERCENT AUTO 1 % (0-1); LYMPHOCYTES ABSOLUTE AUTO 0.31 K/mm3 (0.84-5.20); LYMPHOCYTES PERCENT AUTO 2 % (21-46); MONOCYTES PERCENT AUTO 5 % (4-13); Mean Corpuscular HGB 31.5 pg (26.0-34.0); Mean Corpuscular HGB Conc 29.2 g/dL (31.5-36.5); Mean Corpuscular Volume 108 fL (80-100); Mean Platelet Volume 11.4 fL (9.1-12.4); NEUTROPHILS ABSOLUTE AUTO 12.63 K/mm3 (1.96-9.15); NEUTROPHILS PERCENT AUTO 92 % (41-73); Platelet Count 217 K/mm3 (150-400); RDW Coefficient Variation 12.7 % (11.7-14.2); RDW Standard Deviation 49.9 fL (35.1-46.3); Red Blood Cell Count 2.98 M/mm3 (4.30-5.90); White Blood Cell Count 13.73 K/mm3 (4.00-11.30)
[2023-08-10 04:45] LABS: Blood Urea Nitrogen 68 mg/dL (8-24); Bun/Creatinine Ratio 90.8 (12.0-20.0); Calcium, Blood 9.1 mg/dL (8.5-10.1); Chloride, Blood 95 mmol/L (98-108); Creatinine, Blood 0.75 mg/dL (0.60-1.20); Glomerular Filtration Rate 93 (60-); Glucose, Blood 187 mg/dL (70-99); Potassium, Blood 4.2 mmol/L (3.5-5.5); Sodium, Blood 143 mmol/L (136-145)
[2023-08-10 04:46] LABS: Anion Gap Unable to Calculate mmol/L (6-16)
[2023-08-10 04:47] LABS: CO2, Blood >45 mmol/L (21-32)
--- NOTE | 2023-08-10 06:12 | NUR ---
SHIFT SUMMARY PT RESTED COMFORTABLY OVERNIGHT ON BIPAP AT 14/7 50% AND RATE 14. BREAKS GIVEN WITH 10L NC. CO2 CONTINUES TO BE >45.
--- NOTE | 2023-08-10 07:37 | NUR ---
[place] of Care: Care assumed at 0700hr. Patient sleeping, on BiPAP at 14/7/50%, appears comfortable, VSS. Patient then woke at approx 0730hr. Alert and orient to self, place, date/time, calm and cooperative with staff. Patient then placed on 8L NC, spO2 remains 97-99%, no s/s of dyspnea/SOB. Congested cough with minimal thin clear secretions, LS diminished but clear throughout. Tolerated PO water intake without difficulty. Patient has twitching/jerky type movements. Plant to allow break from BiPAP mask, but will discuss repeat ABG with Dr. Yan this morning. Patient also c/o headache 12/09, plan to given tylenol per EMAR. Patient denies alcohol use. Peripheral IV's x2 patent and intact. Condom cath patent and intact. Will continue to monitor.
[2023-08-10] MEDS ORDERED: OxyCODONE HCL 5 MG TAB PO PRN (12:00)
[2023-08-10] MEDS ORDERED: Acetylcysteine 200 MG/ML 4ML Vial INH SCH (12:05)
[2023-08-10] MEDS ORDERED: Morphine Sulfate 10 MG/ML 1MLSYR INH PRN (12:05)
[2023-08-10] MEDS ORDERED: Primidone 50 MG Tab PO SCH (13:00)
[2023-08-10] MEDS ORDERED: Gabapentin 400 MG Cap PO SCH (14:00)
--- NOTE | 2023-08-10 18:03 | NUR ---
Shift Summary: Patient on/off BiPAP throughout most of shift. On NC at 6-8L while awake for meals, and also awake for several hours this afternoon, watching TV. On BiPAP while sleeping, 14/7/40%. VS remaining stable. Ate 50-75% of meals and tolerated PO water without difficulty. Voiding via condom cath, remains patent and intact, 800ml output this shift. C/o headache and ear ache this morning, effectively managed with x1 prn tylenol and x1 prn fentanyl. No further c/o pain. Patient removed from BiPAP mask at approx 1800hr for scheduled medication administration. Placed on NC at 8L and swallowed pills without difficulty. Patient's SpO2 then slowly decreased to low 70's, and did not respond to increasing NC to 15L. Patient showed no s/s of distress, but placed back on BiPAP mask. SpO2 then increased to 94%. Will continue to monitor. Plan to attempt NC again at shift change with TY RN at bedside.
--- NOTE | 2023-08-10 18:40 | NUR ---
Pt very frail and tremulous and aggitated. He relayed his life to me was a [place] . 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 He showed me the tattoo of his and relayed his love and good life. they raised maurisio simeon did foster care and traised a disabled christo child. He is having terrible abdominal preassure and contipation. He is having tremor and some neuro changes. He things he would be better if th stomach would hurt less. will review with physician. suggest check for malignancy. Review of needs and sympton-m siwht nursing will continue to follow.
[2023-08-10] MEDS ORDERED: Docusate Sodium 100 MG Cap PO SCH (21:00)
--- NOTE | 2023-08-10 22:51 | NUR ---
SHIFT ASSESSMENT PT ON 6L HFNC AT CHANGE OF SHIFT, O2 REMAINS IN HIGH 90S. PT AWAKE AND VISITING WITH FAMILY, FAMILY ASSISTING PT WITH DINNER. PT TREMORS CONTINUE TO HAMPER PT WITH TASKS SUCH EATING. PT IS ORIENTED TO SELF, PLACE, AND TIME. PLANS TO RETURN TO BIPAP AT 12/7 40% RATE 14 OVERNIGHT.
[2023-08-11] VITALS (23 sets, daily range): BP systolic 104–143; BP diastolic 66–101
[2023-08-11 04:10] LABS: Base Excess Venous 24.8 mmol/L; Bicarbonate Venous 45.4 mmol/L (24.0-30.0); pH Blood Venous 7.29 (7.34-7.37)
[2023-08-11 04:38] LABS: BASOPHILS ABSOLUTE AUTO 0.01 K/mm3 (0.00-0.23); BASOPHILS PERCENT AUTO 0 % (0-2); EOSINOPHILS PERCENT AUTO 0 % (0-6); Hematocrit 32.9 % (37.0-53.0); Hemoglobin 9.5 g/dL (13.5-17.5); IMMATURE GRAN ABSOLUTE AUTO 0.08 K/mm3 (0.00-0.10); IMMATURE GRAN PERCENT AUTO 1 % (0-1); LYMPHOCYTES ABSOLUTE AUTO 0.32 K/mm3 (0.84-5.20); LYMPHOCYTES PERCENT AUTO 3 % (21-46); MONOCYTES ABSOLUTE AUTO 0.37 K/mm3 (0.16-1.47); MONOCYTES PERCENT AUTO 3 % (4-13); Mean Corpuscular HGB 31.4 pg (26.0-34.0); Mean Corpuscular HGB Conc 28.9 g/dL (31.5-36.5); Mean Corpuscular Volume 109 fL (80-100); Mean Platelet Volume 11.1 fL (9.1-12.4); NEUTROPHILS ABSOLUTE AUTO 10.15 K/mm3 (1.96-9.15); NEUTROPHILS PERCENT AUTO 93 % (41-73); Platelet Count 190 K/mm3 (150-400); RDW Coefficient Variation 12.5 % (11.7-14.2); RDW Standard Deviation 49.1 fL (35.1-46.3); Red Blood Cell Count 3.03 M/mm3 (4.30-5.90); White Blood Cell Count 10.93 K/mm3 (4.00-11.30)
[2023-08-11 05:01] LABS: PCO2 Venous > 104 mmHg (38-42)
[2023-08-11 05:52] LABS: Blood Urea Nitrogen 63 mg/dL (8-24); Bun/Creatinine Ratio 91.7 (12.0-20.0); Calcium, Blood 9.6 mg/dL (8.5-10.1); Chloride, Blood 97 mmol/L (98-108); Creatinine, Blood 0.69 mg/dL (0.60-1.20); Glomerular Filtration Rate 95 (60-); Glucose, Blood 154 mg/dL (70-99); Potassium, Blood 5.1 mmol/L (3.5-5.5); Sodium, Blood 142 mmol/L (136-145)
[2023-08-11 05:55] LABS: Anion Gap Unable to Calculate mmol/L (6-16); CO2, Blood >45 mmol/L (21-32)
--- NOTE | 2023-08-11 06:57 | NUR ---
SHIFT SUMMARY PT RESTED OVERNIGHT ON 4LNC WITH O2 SATS IN HIGH 90s. PT RETURNED TO BIPAP AT 0420 ON 12/01 40% RATE 14. PT CO2 LEVELS CAME BACK >104, REPORTED TO MD LOPEZ. AROUND 0620 PT ATTEMPTED TO PUSH BIPAP MASK UP AND OFF OF FACE TO DRINK WATER. BIPAP REMOVED AT THIS TIME, PT PUT ON 4L NC O2. PT EDUCATED ON RISKS OF DRINKING FLUIDS WHILE ACTIVELY ON BIPAP AND REMOVING OXYGEN WITHOUT REPLACEMENT READY. PT TURNED UP TO 5L NC AFTER PRODUCTIVE COUGH AT 0650. RT AWARE OF BIPAP REMOVAL. PT TREMORS HAVE REMAINED SEVERE ENOUGH TO HAMPER ADLs. PT REMINDED TO USE CALL LIGHT IF REQUIRING ASSISTANCE.
--- NOTE | 2023-08-11 18:22 | NUR ---
SUMMARY PT A/O TO PERSON, SOME CONFUSED MUMBLED CONVERSATION. WAS REPORTED THAT PT MIGHT BE SILENTLY ASPIRATING WITH THIN LIQUIDS. ST EVAL THIS AM MODIFIED DIET. PT ABLE TO TAKE SIPS OF THICKENED LIQUIDS AND ATE SOME LUNCH. WORE BIPAP IN BETWEEN MEALS THEN ON 4-5L NC WHEN OFF BIPAP. DR. GALLARDO CONSULTED TODAY AND SPOKE WITH FAMILY ABOUT PLAN OF CARE. NO SIGN OF DISTESS, RESTING ON THE BIPAP NOW.
--- NOTE | 2023-08-11 19:39 | NUR ---
ASSUMED CARE OF PATIENT AT 1900. REPORT RECEIVED FROM CHRISTOFER BOSS. PT ALERT AND ORIENTED TO SELF AND IS AWARE THAT HE IS IN THE HOSPITAL. UNFAMILIAR WITH DATE AND CONFUSED WITH SITUATION. MONITOR SHOWS SINUS TACHY WITH HR IN 100'S. RT AT BEDSIDE PLACING MASK FOR NEBULIZER TREATMENT, BIPAP ON HOLD BUT WILL RESUME ONCE PATIENT IS DONE WITH NEB TREATMENT AND EATING. FAMILY AT BEDSIDE, AND CALL LIGHT WITHIN REACH. SEE SHIFT ASSESSMENT FOR FULL ASSESSMENT DETAILS.
[2023-08-12] VITALS (13 sets, daily range): BP systolic 112–150; BP diastolic 75–99
[2023-08-12 03:57] LABS: Bicarbonate Venous 52.4 mmol/L (24.0-30.0); PCO2 Venous 74.3 mmHg (38-42); pH Blood Venous 7.47 (7.34-7.37)
[2023-08-12 04:23] LABS: BASOPHILS ABSOLUTE AUTO 0.01 K/mm3 (0.00-0.23); BASOPHILS PERCENT AUTO 0 % (0-2); EOSINOPHILS PERCENT AUTO 0 % (0-6); Hematocrit 32.3 % (37.0-53.0); Hemoglobin 9.3 g/dL (13.5-17.5); IMMATURE GRAN ABSOLUTE AUTO 0.03 K/mm3 (0.00-0.10); IMMATURE GRAN PERCENT AUTO 0 % (0-1); LYMPHOCYTES PERCENT AUTO 6 % (21-46); MONOCYTES ABSOLUTE AUTO 0.68 K/mm3 (0.16-1.47); MONOCYTES PERCENT AUTO 8 % (4-13); Mean Corpuscular HGB 31.1 pg (26.0-34.0); Mean Corpuscular HGB Conc 28.8 g/dL (31.5-36.5); Mean Corpuscular Volume 108 fL (80-100); Mean Platelet Volume 11.9 fL (9.1-12.4); NEUTROPHILS ABSOLUTE AUTO 7.55 K/mm3 (1.96-9.15); NEUTROPHILS PERCENT AUTO 86 % (41-73); Platelet Count 172 K/mm3 (150-400); RDW Coefficient Variation 12.5 % (11.7-14.2); RDW Standard Deviation 48.9 fL (35.1-46.3); Red Blood Cell Count 2.99 M/mm3 (4.30-5.90); White Blood Cell Count 8.77 K/mm3 (4.00-11.30)
[2023-08-12 05:34] LABS: Blood Urea Nitrogen 47 mg/dL (8-24); Bun/Creatinine Ratio 97.1 (12.0-20.0); Calcium, Blood 9.8 mg/dL (8.5-10.1); Chloride, Blood 97 mmol/L (98-108); Creatinine, Blood 0.48 mg/dL (0.60-1.20); Glomerular Filtration Rate 106 (60-); Glucose, Blood 126 mg/dL (70-99); Potassium, Blood 4.9 mmol/L (3.5-5.5); Sodium, Blood 142 mmol/L (136-145)
[2023-08-12 05:35] LABS: Anion Gap Unable to Calculate mmol/L (6-16); CO2, Blood >45 mmol/L (21-32)
--- NOTE | 2023-08-12 06:01 | NUR ---
SHIFT SUMMARY PT REMAINED ALERT T/O ENTIRETY OF SHIFT. HE IS ORIENTED TO PERSON, SELF, AND PLACE, BUT IS UNSURE OF DATE/TIME. FOLLOWS VERBAL COMMANDS AND MAKES PURPOSEFUL MOVEMENTS. HE IS WEAK AND CACHECTIC. MONITOR SHOWED ATRIAL FLUTTER WITH HR IN 80'S-100'S. BP STABLE. REMAINED ON BIPAP WITH SETTINGS OF 14/7 + 40% WITH OCCASIONAL BREAKS TO 5LPM HF VIA NC DURING PERIODS OF MEDICATION ADMINISTRATION AND DRINKING WATER. NO BM THIS SHIFT. CONDOM CATHETER IN PLACE DRAINING ORANGE COLORED URINE TO GRAVITY. ARMS WITH VARIOUS BRUISING THAT STATES HE HAD PRIOR TO ADMISSION. PIV TO LFA AND LAC. CALL LIGHT IN REACH. WILL CONTINUE TO MONITOR AND REPORT TO ONCOMING RN.
--- NOTE | 2023-08-12 08:35 | NUR ---
AM NOTE... ASSUMED CARE OF PT AT 0700. PT IS A&O TO SELF, FAMILY AND PLACE. HE IS IN AFLUTTER IN THE 90'S-110'S BP IS STABLE WITH MAPS>65. HE IS ON 5L NC WITH O2 SATS>90%. ON THE BIPAP WHEN SLEEPING AT 14/7 AND 40%. L/S COARSE AND DIM T/O. BT PRESENT AND NORMOACTIVE, ABD IS SOFT AND NONTENDER TO PALPATION. PT HAD A LARGE BROWN STOFT BM THIS AM. CONDOM CATH IN PLACE AND DRAINING TO GRAVITY. CALL LIGHT IN REACH WILL CONTINUE TO MONITOR.
[2023-08-12] MEDS ORDERED: PredniSONE 20 MG Tab PO SCH (09:00)
[2023-08-12] MEDS ORDERED: Morphine Sulfate 20 MG/1ML 1 ML Oral Syringe PO PRN (09:05)
[2023-08-12] MEDS ORDERED: Morphine Sulfate 20 MG/1ML 1 ML Oral Syringe SL PRN (13:55)
[2023-08-12] MEDS ORDERED: Scopolamine Hydrobromide Patch TOP PRN (13:55)
[2023-08-12] MEDS ORDERED: Promethazine HCl 25 MG Tab PO PRN (13:55)
[2023-08-12] MEDS ORDERED: Promethazine HCl 25 MG Supp PR PRN (13:55)
[2023-08-12] MEDS ORDERED: Morphine Sulfate 10 MG/ML 1MLSYR IV PRN (13:55)
[2023-08-12] MEDS ORDERED: Acetaminophen 325 MG TABLET PO PRN (14:00)
[2023-08-12] MEDS ORDERED: Morphine Sulfate 10 MG/ML 1MLSYR INH PRN (14:00)
--- NOTE | 2023-08-12 18:21 | NUR ---
PT'S SON, MATILDA BOND CALLED TO SHARE CONCERNS. IT WAS DIFFICULT TO UNDERSTAND MATILDA FULLY HE HAD A RAISED GARBLED VOICE WITH PRESSURED SPEECH. 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 I ATTEMPTED TO REASSURE MATILDA WITH A CALM VOICE THAT HIS NURSE HAD MEDICATED FOR PAIN WITH SOME MORPHINE AND THAT RAY APPEARED VERY COMFORTABLE AND WAS EATING A HAMBURGER WITH HELP FROM MAURICIO WHOM WAS AT BEDSIDE AT THE TIME. MATILDA BECAME MORE ESCALATED, "I KNOW WHAT COMFORT MEANS TO YOU, AND IT DOESNT MEAN *HIT. YOU KILLED MY IN 2020 WHEN COVID... I SUED YOU AND WON 1 MILLION DOLLARS", POSSIBLY HE STATED THAT "I'M NOT LETTNG YOU DO THAT TO MY DAD" (WAS DIFFICULT TO UNDERSTAND) AND THEN "I'M CALLING A FRONT OFFICE ADMINISTRATOR". AT THAT POINT MATILDA EITHER HUNG UP OR WE BECAME DISCONNECTED. PRIMARY RN AND PLASTICS SUPERVISOR NOTIFIED.
--- NOTE | 2023-08-12 18:25 | NUR ---
SHIFT SUMMARY.... PT WAS CHANGED TO COMFORT CARE AROUND 1400 PER THE PT, HIS AND A LARGE GROUP OF FAMILY MEMBERS THAT WERE AT THE BEDSIDE. PER THE PT AND HIS FAMILY THEY WOULD LIKE TO GO HOME WITH HOSPICE CARE, PROVIDERS WERE NOTIFIED AND COMFORT CARE ORDERS WERE PLACED. THE PT HAS BEEN INCONT OF URINE AND STOOL THIS SHIFT. PT HAS BEEN REQUSTING THE BIPAP MASK WHEN HE BECOMES SHORT OF BREATH. WHEN OFF THE BIPAP HE IS ON 5L NC. CALL LIGHT IN REACH WILL CONTINUE TO MONITOR UNTIL REPORT IS GIVEN TO ONCOMING RN.
--- NOTE | 2023-08-13 05:28 | NUR ---
SHIFT SUMMARY PT RESTING COMFORTABLY AT THIS TIME. PT GIVEN MORPHINE AND XANAX DURING SHIFT D/T PT MOANING/CALLING OUT. PT REPOSITIONED OFTEN PT REQUESTED/ACCEPTED OFFER OF BEING TURNED. EXTERNAL URINARY CATHETER REAPPLIED TO PT FOR PT COMFORT TURNING SIDE TO SIDE TO CHANGE BRIEF IS PAINFUL FOR PT.
--- NOTE | 2023-08-13 10:00 | NUR ---
INCREASED PAIN: AROUND 0900 PATIENT STARTED MOANING AUDIBLY. IT WAS DIFFICULT FOR THE PATIENT TO HAVE A CONVERSATION WITH HIS FAMILY AT THE BEDSIDE. MEDICATED PER PRNS, PROVIDED WITH FRESH WATER AND COFFEE. PATIENT DECLINED REPOSITION. PATIENT NOW RESTING COMFORTABLY WITH FAMILY AT THE BEDSIDE.
--- NOTE | 2023-08-13 17:40 | NUR ---
SHIFT SUMMARY: PATIENT MEDICATED FOR COMFORT THROUGHOUT THE SHIFT. AT TIMES PATIENT ABLE TO ANSWER QUESTIONS ABOUT HIS PAIN OTHER TIMES, PATIENT REPEATS "OW"/MOANS REPEATEDLY. PRN MEDICATION, COOL WATER, AND FAMILY VISITS SEEMED TO THE THE MOST WITH HIS PAIN. PATIENT CONTINUES TO HAVE ADEQUATE URINE OUTPUT (925ML) DURING THE SHIFT. URINE IS DARK YELLOW/MILLICENT WITHOUT SEDIMENT OR ODOR. PATIENT CONTINUES TO BE ON 5L VIA OXYMIZER. FAMILY WAS MAKING JOKES WITH FAMILY AND STAFF THIS MORNING. PATIENT MORE DROWSY THIS AFTERNOON, AT ONE POINT ASKING THE RN IF HE WAS AWAKE OR NOT. PATIENT RECEIVED VISITS FROM MULTIPLE FAMILY TODAY. THE PLAN IS FOR THE PATIENT TO DISCHARGE TOMORROW AT 10AM. FAMILY IS AWARE.
--- NOTE | 2023-08-13 20:39 | NUR ---
ASSUMPTION OF CARE BEDSIDE SHIFT REPORT RECEIVED FROM DAYSHIFT RN. PT RESTING IN BED, SLEEPING BUT AROUSABLE. PT ORIENTED TO SELF AND FAMILY, MOVES EXTRIEITES EQUALLY BILATERALLY, AND FOLLOWS COMMANDS. PT MOANING AND COMPLAINING OF PAIN, CPOT SCORE COMPLETED, MEDICATED PER EMAR. LUNG SOUNDS DIMINISHED, ON 5L VIA NC, OXYGEN SATURATION >90%. CONDOM CATHETER IN PLACE DRAINING YELLOW URINE. PIV TO LEFT UPPER ARM AND LEFT FOREARM SL. BED IN LOWEST POSITION, CARE CONTINUES.
--- NOTE | 2023-08-14 05:36 | NUR ---
SHIFT SUMMARY PT RESTING IN BED, SLEEPING BUT AROUSABLE. PT OPENS EYES SPONTANEOUSLY, IS ABLE TO ANSWER SOME QUESTIONS AND FOLLOWS SIMPLE COMMANDS. PT MOVES ALL EXTREMITIES EQUALLY BILATERALLY. PT MEDICATED FOR PAIN PER EMAR THROUGHOUT THIS SHIFT. LUNG SOUNDS DIMINISHED THROUGHOUT, PT ON 4L VIA NC, OXYGEN SATURATION >95%. CONDOM CATH IN PLACE DRAINING YELLOW URINE TO GRAVITY. PIV TO LEFT FOREARM AND LEFT UPPER ARM SL. BED IN LOWEST POSITION, CALL LIGHT WITHIN REACH, CARE CONTINUES.
--- NOTE | 2023-08-14 10:17 | NUR ---
ASSUMED CARE/DISCHARGE HOME TO HOSPICE REPORT FROM TIFFANY BEAULIEU AT 0700. PT APPEARS TO BE SLEEPING. WAKES LATER IN AM. MOANS. MEDICATED FOR PAIN. FOLLOWS SIMPLE COMMANDS. DENIES NEEDS. ORIENTED TO SELF, KNOWS NAMES OF FAMILY. PIV X 2, REMOVED UPON DISCHARGE. CONDOM CATH REMAINS IN PLACE. CALLED FAMILY AND BRISTOL UPON DISCHARGE.
== END 2023-08-14 10:00 | disposition hospice, home (50) | DRG 189 ==
LOC: ER 16:56 → ICUE 18:56
PROVIDERS: Emergency Medicine; Internal Medicine; Nurse Practitioner Acute Care; Student in an Organized Health Care Education/Training Program; ADMIT Internal Medicine
PROC: 5A09557 Assistance with Respiratory Ventilation, Greater than 96 Consecutive Hours, Continuous Positive Airway Pressure (ICD-10-PCS; principal; 2023-08-07)
DX: J96.21 Acute and chronic respiratory failure with hypoxia (principal); E43 Unspecified severe protein-calorie malnutrition; J44.1 Chronic obstructive pulmonary disease with (acute) exacerbation; I13.0 Hypertensive heart and chronic kidney disease with heart failure and stage 1 through stage 4 chronic kidney disease, or unspecified chronic kidney disease; I50.32 Chronic diastolic (congestive) heart failure; I48.92 Unspecified atrial flutter; R64 Cachexia; Z68.1 Body mass index [BMI] 19.9 or less, adult; G89.29 Other chronic pain; M54.9 Dorsalgia, unspecified; F11.90 Opioid use, unspecified, uncomplicated; F17.210 Nicotine dependence, cigarettes, uncomplicated; D63.1 Anemia in chronic kidney disease; N18.2 Chronic kidney disease, stage 2 (mild); Z99.81 Dependence on supplemental oxygen; Z51.5 Encounter for palliative care; I27.20 Pulmonary hypertension, unspecified; Z66 Do not resuscitate; E86.0 Dehydration; Z88.8 Allergy status to other drugs, medicaments and biological substances; Z88.2 Allergy status to sulfonamides; Z88.5 Allergy status to narcotic agent; Z79.51 Long term (current) use of inhaled steroids; Z79.899 Other long term (current) drug therapy; Z11.52 Encounter for screening for COVID-19; Z71.6 Tobacco abuse counseling; Z98.1 Arthrodesis status; Z90.49 Acquired absence of other specified parts of digestive tract
CPT/HCPCS: 0241U; 36415; 71045; 80048; 80053; 82803; 83605; 83735; 83880; 84145; 84484; 85014; 85018; 85025; 85027; 85049; 85520; 85610; 85730; 87040; 92610; 93005; 93010; 93306; 94640; 94644; 94645; 94660; 94664; 94760; 94762; 96365; 96367; 96368; 96375; 96376; 97129; 97165; 99291-25; A9270; J0456; J0696; J1644; J1650; J1940; J2270; J2930; J3010; J3475; J7040; J7050; J7512